=== PATIENT | female | born 1965 | race Caucasian/White ===

== ENCOUNTER 2017-11-11 13:38 | Outpatient (CLI) | payer BC ==
--- NOTE | 2017-11-11 18:19 | Diagnostic Imaging Report ---
REED MILES (SHELBIE) - OP [facility] [id number] [facility] [address] [id number] Report Submission Date: Nov 11, 2017 2:17:35 PM CDT Patient Study Name: ROCHELLE RILEY Date: Nov 11, 2017 1:49:02 PM CDT Modality Type: DX Gender: F Description: LOWER EXTREMITY : 65 Institution: [facility] Physician: REED MILES (SHELBIE) - OP 2 views of the right knee History: RT KNEE, PAIN AND SWELLING IN RT KNEE SINCE AUGUST 2017, WORSENING IN THE LAST FEW WEEKS, PAIN WORSE IN MEDIAL KNEE, NO KNOWN INJURY No prior comparison studies No evidence of acute fracture or dislocation of the right knee. No suprapatellar effusion Medial and femoral patellar joint space narrowing. Osteophytes and subchondral cysts at the articular surface of the patella Impression: 1. No evidence of acute fracture or dislocation. 2. Degenerative changes, joint space narrowing most pronounced in the medial knee joint space and femoropatellar joint. Electronically signed on Nov 11, 2017 2:17:35 PM CDT by: Mai FU
== END 2017-11-11 13:40 ==
LOC: RAD 13:38
PROVIDERS: ATTEND Nurse Practitioner Family
DX: M25.561 Pain in right knee (principal)
CPT/HCPCS: 73560